=== PATIENT | female | born 1960 | race Caucasian/White ===

== ENCOUNTER 2020-05-01 11:12 | Emergency (ER) | payer OTHER, SELFPAY ==
--- NOTE | ~2020-05-01 | XR_ITS ---
EXAMINATION: XR hand LT min 3V EXAM DATE: 05/01/2020 11:41 INDICATION: Fall, lt hand bruising on metacarpals. Initial encounter. TECHNIQUE: Left hand frontal, lateral and oblique projections obtained and reviewed. There is no yana or study for comparison. FINDINGS: Left metacarpal bones are unremarkable. There is moderate to severe 2nd-4th distal interph alangeal joint and 1st carpometacarpal joint primary osteoarthritis. There is an old ulnar styloid a vulsion injury. There are no acute fractures or dislocations identified. There is no subcutaneous ga s. The soft tissue is unremarkable. There are no radiopaque foreign bodies. IMPRESSION: Polyarticular osteoarthritis. No acute findings. Reviewed, dictated and finalized at location B. TER DOFFER
--- NOTE | 2020-05-01 11:29 | ED.GENADULT ---
HPI - General Adult General Chief complaint: Extremity Injury, Upper Stated complaint: fell left hand injury Time Seen by Provider: 05/01/20 11:30 Source: patient Mode of arrival: ambulatory Limitations: no limitations History of Present Illness HPI narrative: 59-year-old female patient presents to the [facility] with complaints of left hand pain for the past 2 days. Patient states this past Friday she tripped on a piece of concrete going up to her front door and states that she fell forward landing on her left hand. Patient states she is type II diabetic. Patient states that she did scrape her pinky finger on what she thinks might of either been some dirt or possibly the house when she fell. Patient states she did take some naproxen yesterday for the pain but denies taking anything for the pain today. Rates her pain at this time 1 out of 10. Denies any numbness or tingling to the fingertips. Related Data Home Medications Medication Instructions Recorded Confirmed albuterol sulfate [ProAir HFA] 90 mcg INHALATION DAILY 05/01/20 05/01/20 amlodipine 10 mg PO DAILY 05/01/20 05/01/20 gabapentin 100 mg PO DAILY 05/01/20 05/01/20 insulin glargine [Basaglar KwikPen 100 unit SUBCUT DAILY 05/01/20 05/01/20 U-100 Insulin] levothyroxine 100 mcg PO DAILY 05/01/20 05/01/20 metformin 1,000 mg PO DAILY 05/01/20 05/01/20 pen needle, diabetic [BD 05/01/20 05/01/20 Ultra-Fine Short Pen Needle] simvastatin 20 mg PO DAILY 05/01/20 05/01/20 sitagliptin [Januvia] 100 mg PO DAILY 05/01/20 05/01/20 Allergies Allergy/AdvReac Type Severity Reaction Status Date / Time erythromycin base Allergy Mild Itching Verified 05/01/20 11:24 lisinopril AdvReac Mild Cough Verified 05/01/20 11:25 Review of Systems Review of Systems: Narrative: CONSTITUTIONAL: Denies fever, chills, or sweats. EYES: Denies visual changes, redness, or discharge. ENT: Denies rhinorrhea, congestion, sore throat, or otalgia. CARDIOVASCULAR: Denies chest pain, palpitations, or edema. RESPIRATORY: Denies cough or dyspnea. GASTROINTESTINAL: Denies abdominal pain, nausea, vomiting, or diarrhea. GENITOURINARY: Denies dysuria or hematuria. SKIN: Denies rash or itching. MUSCULOSKELETAL: Denies back pain, joint pain, or myalgia. Positive left hand pain NEUROLOGIC: Denies headache, numbness, or weakness. PSYCHIATRIC: Denies anxiety or depression. [facility] Past Medical History Medical History (Updated 05/01/20 @ 11:52 by JOSE Snow) Anxiety Arthritis Diabetes Gout Hypertension Hypothyroidism Surgical History Surgical History (Updated 05/01/20 @ 11:31 by JOSE Snow) H/O oophorectomy History of Social History Social History Gender identity (if verbalized by the patient): Female Comments At the time of my signature I agree with nursing past medical history, surgical, social, and family history. There is no relevant family history pertinent to the presenting complaint. Exam Narrative: Exam Narrative: GENERAL: Well-appearing, well-nourished, and in no acute distress. HEAD: Normocephalic, atraumatic. EYES: PERRLA and EOMI. ENT: Nares clear, no rhinorrhea or epistaxis. Mucous membranes moist. NECK: Supple. No lymphadenopathy CHEST: Clear to auscultation. No respiratory distress. HEART: Regular rate and rhythm. No murmur heard. Normal peripheral pulses. ABDOMEN: Soft, nontender, nondistended, normal active bowel sounds. EXTREMITIES: The L hand is without obvious asymmetry or deformity when compared to the R hand. There is some slight swelling and bruising noted to the dorsal portion of the left hand over the fourth and fifth metacarpal. Patient does have some abrasion noted to the medial side of the left pinky finger. Decreased cascade of fingers. Decreased flexion and extension of fourth and fifth fingers. There is slight swelling noted to the fourth and fifth fingers of the left hand.
[2020-05-01 11:33] VITALS: BP 161/72; PULSE 83; RESP 18; TEMP 36.8; O2SAT 99
== END 2020-05-01 11:56 | disposition home or self-care (01) ==
PROVIDERS: Emergency Provider Nurse Practitioner Family; PCP Family Medicine
DX: S60.222A Contusion of left hand, initial encounter (principal); W18.09XA Striking against other object with subsequent fall, initial encounter; M19.90 Unspecified osteoarthritis, unspecified site; E11.9 Type 2 diabetes mellitus without complications; M10.9 Gout, unspecified; I10 Essential (primary) hypertension; E03.9 Hypothyroidism, unspecified; Z79.4 Long term (current) use of insulin
CPT/HCPCS: 73130; 99213; G0463

== ENCOUNTER 2020-09-06 10:05 | Outpatient (CLI) | payer OTHER, SELFPAY ==
--- NOTE | ~2020-09-06 | MM_ITS ---
EXAMINATION: MM screening [facility] BI w jordy HISTORY: Screening TECHNIQUE: Craniocaudal and mediolateral oblique 3-D tomosynthesis images were obtained and synthetic 2-D images were generated. CAD analysis was submitted and interpreted. COMPARISON: 04/10/2016 BREAST PARENCHYMAL COMPOSITION: There are scattered areas of fibroglandular density. FINDINGS: There is no evidence of suspicious mass, calcification, or architectural distortion to sugg est malignancy in either breast. There has been no suspicious interval change. IMPRESSION: 1. No mammographic evidence of malignancy. 2. Recommend routine screening mammography in one year. BI-RADS Category 1: Negative Reviewed, dictated and finalized at location A.
== END 2020-09-06 10:06 | disposition home or self-care (01) ==
LOC: ANHIMG 10:09
PROVIDERS: PCP Family Medicine; Visit Provider Family Medicine
DX: Z12.31 Encounter for screening mammogram for malignant neoplasm of breast (principal)
CPT/HCPCS: 77063; 77067

== ENCOUNTER 2020-09-22 08:14 | Outpatient (CLI) | payer OTHER, SELFPAY ==
--- NOTE | ~2020-09-22 | US_ITS ---
EXAMINATION: US abdomen limited DATE: 09/22/2020 08:50 INDICATION: Abnormal liver function tests. TECHNIQUE: Multiple grayscale and Doppler ultrasound images of the abdomen were obtained. COMPARISON: None FINDINGS: The visualized portions of the head and body of the pancreas are normal. There is diffuse h epatic steatosis. No liver surface nodularity. There is normal flow in main portal vein. The gallblad vasiliy is normal in size. No gallstones or gallbladder wall thickening. There is no sonographic Weaver s ign. The common duct is normal and measures 4 mm. There is a 14.9 x 10.5 x 15.1 cm predominantly cyst ic mass with hypoechoic components and septations in the abdomen. IMPRESSION: 1. 15.1 cm mass in the abdomen suspicious for neoplasm. Abdomen and pelvis CT with contrast is recomm ended. 2. Diffuse hepatic steatosis. Reviewed, dictated and finalized at location A. IMPRESSION: 1. 15.1 cm mass in the abdomen suspicious for neoplasm. Abdomen and pelvis CT w ith contrast is recommended. 2. Diffuse hepatic steatosis.
== END 2020-09-22 08:15 | disposition home or self-care (01) ==
PROVIDERS: PCP Family Medicine; Visit Provider Family Medicine
DX: R74.01 Elevation of levels of liver transaminase levels (principal); K76.0 Fatty (change of) liver, not elsewhere classified; R19.00 Intra-abdominal and pelvic swelling, mass and lump, unspecified site
CPT/HCPCS: 76705

== ENCOUNTER 2020-09-29 07:51 | Outpatient (CLI) | payer OTHER, SELFPAY ==
--- NOTE | ~2020-09-29 | CT_ITS ---
EXAMINATION: CT abdomen pelvis w con EXAM DATE: 09/29/2020 08:25 INDICATION: Abdominal 15 cm mass seen on ultrasound, pelvic swelling. Hypertension, diarrhea. TECHNIQUE: Spiral CT of the abdomen and pelvis was performed following intravenous injection of 100 m L Omnipaque 350. Axial, coronal and sagittal images of the abdomen and pelvis were reviewed. The do se-length product (DLP) for this examination was 759.02 mGy-cm. The exposure was tailored according to patient size (auto mA exposure control), and iterative reconstruction (ASIR) was used as additiona l dose reduction technique. There is no prior study for comparison. FINDINGS: Right ovarian complex cystic mass with thick outer wall and internal septations measuring 1 7 x 12 cm.. 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 Uterus is unremarkable. The l iver, spleen, adrenal glands and pancreas are unremarkable. Gallbladder is unremarkable. No biliary obstruction. Portal and splenic veins are patent. Kidneys enhance symmetrically. There is no hydr onephrosis. The bladder is unremarkable. There is no retroperitoneal or pelvic lymphadenopathy. The appendix is normal. The stomach and small bowel are unremarkable. There is expected amount of c olonic stool. No free intraperitoneal gas. The heart is normal in size. There are no pericardial or pleural effusions. Right lower lobe calcified granuloma. There are no osteoblastic or osteolyti c lesions identified. 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 No evidence metastatic dis ease. Surgical excision indicated. Reviewed, dictated and finalized at location A. 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 No e vidence metastatic disease. Surgical excision indicated.
[2020-09-29 08:18] LABS: Estimated Glomerular Filt Rate > 60
== END 2020-09-29 07:52 | disposition home or self-care (01) ==
PROVIDERS: PCP Family Medicine; Visit Provider Family Medicine
DX: N83.9 Noninflammatory disorder of ovary, fallopian tube and broad ligament, unspecified (principal)
CPT/HCPCS: 74177; Q9967

== ENCOUNTER 2021-11-27 09:48 | Outpatient (CLI) | payer OTHER, SELFPAY ==
--- NOTE | ~2021-11-27 | MM_ITS ---
EXAMINATION: MM screening [facility] BI w jordy HISTORY: Screening mammogram TECHNIQUE: Craniocaudal and mediolateral oblique 3-D tomosynthesis images were obtained and synthetic 2-D images were generated. CAD analysis was submitted and interpreted. COMPARISON: 09/06/2020, 04/10/2016 BREAST PARENCHYMAL COMPOSITION: There are scattered areas of fibroglandular density. FINDINGS: There is no suspicious mass, calcification, or architectural distortion to suggest malignan cy in either breast. There has been no suspicious interval change. IMPRESSION: 1. No mammographic evidence of malignancy. 2. Recommend routine screening mammography in one year. BI-RADS Category 1: Negative Reviewed, dictated and finalized at location A.
== END 2021-11-27 09:49 | disposition home or self-care (01) ==
PROVIDERS: PCP Family Medicine; Visit Provider Physician Assistant
DX: Z12.31 Encounter for screening mammogram for malignant neoplasm of breast (principal)
CPT/HCPCS: 77063; 77067

== ENCOUNTER 2022-04-27 09:52 | Emergency (ER) | payer OTHER, SELFPAY ==
[2022-04-27 09:58] VITALS: BP 121/69; PULSE 64; RESP 18; TEMP 36.8; O2SAT 99
--- NOTE | 2022-04-27 10:05 | ED.FEMALEGU ---
HPI - Female Genitourinary General Chief complaint: Urogenital-Female Stated complaint: UTI Time Seen by Provider: 04/27/22 10:15 Source: patient, RN notes reviewed and old records reviewed Mode of arrival: ambulatory Limitations: no limitations History of Present Illness HPI Narrative: 61-year-old female presents to the [facility] with her urgency burning blood in her urine that started a week ago. Had seen primary care provider prescribed Macrobid. Finished the Macrobid 2 days ago. Symptoms returned last night with frequency, burning, urgency and blood in her urine. Denies any abdominal pain or CVA tenderness. Denies fevers. Denies any other history of UTI ice. Related Data Home Medications Medication Instructions Recorded Confirmed albuterol sulfate 90 mcg/actuation 90 mcg inhalation DAILY 05/01/20 04/27/22 aerosol inhaler (ProAir HFA) amlodipine 10 mg tablet 10 mg PO DAILY 05/01/20 04/27/22 insulin glargine 100 unit/mL (3 100 unit subcut DAILY 05/01/20 04/27/22 mL) subcutaneous pen (Basaglar KwikPen U-100 Insulin) levothyroxine 100 mcg tablet 100 mcg PO DAILY 05/01/20 04/27/22 metformin 1,000 mg tablet 1,000 mg PO DAILY 05/01/20 04/27/22 pen needle, diabetic 31 gauge x 05/01/20 04/27/22 5/16 (BD Ultra-Fine Short Pen Needle) simvastatin 20 mg tablet 20 mg PO DAILY 05/01/20 04/27/22 empagliflozin 25 mg tablet 25 mg PO DAILY 04/27/22 04/27/22 (Jardiance) Allergies Allergy/AdvReac Type Severity Reaction Status Date / Time erythromycin base Allergy Mild Itching Verified 04/27/22 10:00 lisinopril AdvReac Mild Cough Verified 04/27/22 10:00 Review of Systems Review of Systems: All systems reviewed & are unremarkable except as noted in HPI and below Constitutional: Constitutional: Reports no additional constitutional complaints Eyes: Eyes: Reports no additional eye complaints ENT: Reports system reviewed and no additional complaints, except as documented Cardiovascular: Cardiovascular: Reports no additional cardiovascular complaints, Denies chest pain and Denies dyspnea Respiratory: Respiratory: Reports no additional respiratory complaints, Denies chest congestion, Denies cough and Denies dyspnea Gastrointestinal: Gastrointestinal: Reports no additional gastrointestinal complaints, Denies abdominal pain, Denies nausea and Denies vomiting Genitourinary: Genitourinary: Reports as per HPI and Reports dysuria Musculoskeletal: Musculoskeletal: Reports no additional musculoskeletal complaints Integumentary/Breasts: Skin/Breast: Reports system reviewed and no additional complaints, except as docu Neurologic: Reports system reviewed and no additional complaints, except as documented Psychiatric: Psychiatric: Reports no additional psychiatric complaints Allergic/Immunologic: Allergic/Immunologic: Reports no additional allergic/immunologic complaints PMFSH Past Medical History Medical History Anxiety Arthritis Diabetes Gout Hypertension Hypothyroidism Surgical History Surgical History (Updated 05/01/20 @ 11:31 by JOSE Snow) H/O oophorectomy History of Social History Social History Gender identity (if verbalized by the patient): Female Comments At the time of my signature, I reviewed and agree with the nursing past medical, surgical, social, and family history. There is no relevant family history pertinent to the patient complaint. Exam Const: General: cooperative, healthy appearing, comfortable, no acute distress, well developed, alert and well nourished Nutritional Appearance: well nourished Orientation/consciousness: patient oriented x3 Limitations: no limitations HENMT: Head: normal to inspection Ears: hearing grossly normal bilaterally and external ears normal Face/Nose/Sinus: Normal external nose present, Normal nares present, Normal nasal muco
== END 2022-04-27 10:27 | disposition home or self-care (01) ==
PROVIDERS: Emergency Provider Nurse Practitioner; PCP Family Medicine
DX: N39.0 Urinary tract infection, site not specified (principal); I10 Essential (primary) hypertension; E03.9 Hypothyroidism, unspecified; E11.9 Type 2 diabetes mellitus without complications; Z79.4 Long term (current) use of insulin; M10.9 Gout, unspecified
CPT/HCPCS: 81003; 87077; 87086; 87147; 87181; 87186; 99213; G0463

== ENCOUNTER 2022-08-27 17:18 | Emergency (ER) | payer OTHER, SELFPAY ==
[2022-08-27 17:54] VITALS: BP 141/72; PULSE 72; RESP 18; TEMP 36.9; O2SAT 98
--- NOTE | 2022-08-27 18:06 | ED.FEMALEGU ---
HPI - Female Genitourinary General Chief complaint: Urogenital-Female Stated complaint: UTI Time Seen by Provider: 08/27/22 18:07 Source: patient, RN notes reviewed and old records reviewed Mode of arrival: ambulatory Limitations: no limitations History of Present Illness HPI Narrative: 61-year-old female with a couple day history of frequency and burning with urination, worse today. Patient back in March in April had did have several rounds antibiotics due to antibiotic resistance. Presents today with concerns. Related Data Home Medications Medication Instructions Recorded Confirmed albuterol sulfate 90 mcg/actuation 90 mcg inhalation DAILY 05/01/20 04/27/22 aerosol inhaler (ProAir HFA) amlodipine 10 mg tablet 10 mg PO DAILY 05/01/20 04/27/22 insulin glargine 100 unit/mL (3 100 unit subcut DAILY 05/01/20 04/27/22 mL) subcutaneous pen (Basaglar KwikPen U-100 Insulin) levothyroxine 100 mcg tablet 100 mcg PO DAILY 05/01/20 04/27/22 metformin 1,000 mg tablet 1,000 mg PO DAILY 05/01/20 04/27/22 pen needle, diabetic 31 gauge x 05/01/20 04/27/22 5/16 (BD Ultra-Fine Short Pen Needle) simvastatin 20 mg tablet 20 mg PO DAILY 05/01/20 04/27/22 empagliflozin 25 mg tablet 25 mg PO DAILY 04/27/22 04/27/22 (Jardiance) Allergies Allergy/AdvReac Type Severity Reaction Status Date / Time erythromycin base Allergy Mild Itching Verified 08/27/22 17:53 lisinopril AdvReac Mild Cough Verified 08/27/22 17:53 dulaglutide [[facility] AdvReac Diarrhea Verified 08/27/22 17:53 Review of Systems Review of Systems: All systems reviewed & are unremarkable except as noted in HPI and below Constitutional: Constitutional: Reports no additional constitutional complaints Eyes: Eyes: Reports no additional eye complaints ENT: Reports system reviewed and no additional complaints, except as documented Cardiovascular: Cardiovascular: Reports no additional cardiovascular complaints, Denies chest pain and Denies dyspnea Respiratory: Respiratory: Reports no additional respiratory complaints, Denies chest congestion, Denies cough and Denies dyspnea Gastrointestinal: Gastrointestinal: Reports no additional gastrointestinal complaints, Denies abdominal pain, Denies nausea and Denies vomiting Genitourinary: Genitourinary: Reports as per HPI Musculoskeletal: Musculoskeletal: Reports no additional musculoskeletal complaints Integumentary/Breasts: Skin/Breast: Reports system reviewed and no additional complaints, except as docu Neurologic: Reports system reviewed and no additional complaints, except as documented Psychiatric: Psychiatric: Reports no additional psychiatric complaints Allergic/Immunologic: Allergic/Immunologic: Reports no additional allergic/immunologic complaints PMFSH Past Medical History Medical History Anxiety Arthritis Diabetes Gout Hypertension Hypothyroidism Surgical History Surgical History H/O oophorectomy History of Social History Social History Gender identity (if verbalized by the patient): Female Comments At the time of my signature, I reviewed and agree with the nursing past medical, surgical, social, and family history. There is no relevant family history pertinent to the patient complaint. Exam Const: General: cooperative, healthy appearing, comfortable, no acute distress, well developed, alert and well nourished Nutritional Appearance: well nourished Orientation/consciousness: patient oriented x3 Limitations: no limitations HENMT: Head: normal to inspection Ears: hearing grossly normal bilaterally and external ears normal Face/Nose/Sinus: Normal external nose present, Normal nares present, Normal nasal mucous membranes and turbinates present and normal facial exam Face and sinus: normal facial exam Mouth
[2022-08-27 18:10] LABS: Glucose Point of Care 128 mg/dl (65-105)
== END 2022-08-27 18:33 | disposition home or self-care (01) ==
PROVIDERS: Emergency Provider Nurse Practitioner; PCP Physician Assistant
DX: R30.0 Dysuria (principal); M19.90 Unspecified osteoarthritis, unspecified site; M10.9 Gout, unspecified; I10 Essential (primary) hypertension; E03.9 Hypothyroidism, unspecified; E11.9 Type 2 diabetes mellitus without complications; Z79.4 Long term (current) use of insulin; Z79.84 Long term (current) use of oral hypoglycemic drugs
CPT/HCPCS: 81003; 82948; 87086; 99213; G0463